=== PATIENT | female | born 1975 | race Caucasian/White ===

== ENCOUNTER 2018-10-02 06:33 | Observation (INO) | payer BC | END 2018-10-03 15:30 | disposition home or self-care (01) | LOC: ER FS 06:33 → 4TH 09:34 ==

== ENCOUNTER 2023-02-06 08:54 | Day surgery (SDC) | payer BC ==
[~2023-02-06] VITALS: Ht 162.5 cm; Wt 110.4 kg
[~2023-02-06 08:54] MED LIST: ALB0.5V IH; AMLO-250 PO; ATOR10TA66 PO; CEFD300C3 PO; CITA20TA9 PO; FERR325T18 PO; FLUC150T PO; GLIM4TAB5 PO; IBUP-1773 PO; INDO25CA99 PO; LABE100T9 PO; LIRA0.6P3 SQ; LISI20TA26 PO; LOSA50TA63 PO; MEDR10TA9 PO; METF-399 PO; METO50TA7 PO; PROP40TA5 PO; SITA100T12 PO
[2023-02-06] MEDS ORDERED: LACTATED RINGERS 1,000 ML 1,000 ML IV STA (09:06)
[2023-02-06] MEDS ORDERED: HURRICAINE EXT TUBE (BENZOCAINE) XX PRN (09:15)
[2023-02-06 09:20] VITALS: BP 147/84
[2023-02-06] MEDS ORDERED: MIDAZOLAM INJ 2 MG/2 ML VIAL ONE (09:45)
--- NOTE | 2023-02-06 10:06 | Progress Note-Pre Operative ---
Pre-Operative Progress Note Date of Available H&P: Jan 14, 2023 Date H&P Reviewed: Feb 06, 2023 Time H&P Reviewed: 10:04 History & Physical: H&P Reviewed, Patient Examed, No changes noted Pre-Operative Diagnosis: GERD, Screening TIM FARIAS DO Feb 06, 2023 10:06
[2023-02-06 10:45] VITALS: BP 108/68
--- NOTE | 2023-02-06 10:45 | Progress Note-Post Operative ---
Post-Operative Progess Note Surgeon (s)/Hull Drafter (s) Surgeon TIM FARIAS DO Hull Drafter: Brett Dover, MSIII Pre-Operative Diagnosis GERD, Screening Post-Operative Diagnosis Gastritis ??Gastric Ulcer Polyp internal hemorrhoids external hemorrhoids Procedure & Operative Findings Date of Procedure 02/06/23 Procedure Performed/Findings EGD with biopsy Colonoscopy with snare polypectomy PROCEDURE NOTE: After informed consent was obtained, the patient was brought to the endoscopy suite, placed in bed in left lateral decubitus position. She was administered IV sedation by the [employer] AND JOINER who then monitored vitals the entire time, heart rate, blood pressure and pulse ox and the scope was inserted down the mouth through the esophagus into the stomach. On the way down, noted some mild esophagitis, took a picture, pushed into the stomach, pushed past the antrum into the duodenum. Duodenum looked good. Pulled back and did a biopsy of antrum, then retroflexed the scope, did not see a hiatal hernia, took a picture and then looked at the body of the stomach. I thought I saw an ulcer and did a biopsy. Then pulled the scope into the GE junction and did a biopsy of the GE junction. Pushed the scope back into the stomach, suctioned all the air out of the stomach. At this point pulled the scope up the esophagus and out the mouth. Switched camera, switched gloves, went down below and started the colonoscopy. Pushed all the way to about 150 cm and pushed into the cecum, took a picture of appendiceal orifice and noted the ileocecal valve. I found a polyp in the Ascending colon and removed it with snare. Then slowly withdrew the scope insufflating to look circumferentially at the guillen starting in the cecum, up the ascending colon to the hepatic flexure and then down the transverse colon. I found another flat polyp here and removed it with hot snare. Continued to the splenic flexure, into the descending colon down into the sigmoid and then into the rectal vault. I retroflexed the scope and took a picture of the internal hemorrhoids. I then removed the scope and took a picture of the external hemorrhoids. The patient tolerated the procedure and she recovered in the endoscopy suite. Recommended for repeat colonoscopy in 5 years Anesthesia Type IV sedation by [employer] Estimated Blood Loss Estimated blood loss (mL): scant Specimens/Packing Specimens Removed antral bx body of stomach bx GE jxn bx Asc colon polyp transverse colon polyp TIM FARIAS DO Feb 06, 2023 10:45
--- NOTE | 2023-02-06 10:47 | Endoscopy Discharge Instruct ---
Endo Procedure/Findings Findings 1.: Gastric Ulcer, Gastritis 2.: Polyp 3.: Internal Hemorrhoids Discharge Instructions - Activity: You might feel a little sleepy until tomorrow. This is due to the medicine you received to relax you. Until tomorrow, you should: NOT drive a car, operate machinery or power tools. NOT drink any alcoholic beverages. NOT make any important decisions or sign importortant papers. Do not return to work until tomorrow, unless otherwise instructed. Resume previous activities tomorrow. Diet: Start by taking liquids. If you tolerate liquids, advance to solid food. 1.: EGD in 3 years 2.: Colonscopy in 5 years Notify Physician - If you experience excessive bleeding, unusual abdominal pain, fever, or chest pain, contact your doctor immediately. Follow-Up: Other Follow up in my office in one week TIM FARIAS DO Feb 06, 2023 10:47
[2023-02-06 10:50] VITALS: BP 104/57
[2023-02-06 11:25] VITALS: BP 104/57
--- NOTE | 2023-02-06 12:06 | Anesthesia-General Post-Op ---
MAC Patient Condition Mental Status/LOC: Same as Preop Cardiovascular: Satisfactory Nausea/Vomiting: Absent Respiratory: Satisfactory Pain: Controlled Complications: Absent Post Op Complications Complications None Follow Up Care/Instructions Patient Instructions None needed. Anesthesiology Discharge Order Discharge Order Patient is doing well, no complaints, stable vital signs, no apparent adverse anesthesia problems. No complications reported per nursing. TAMELA DENISE CRNA Feb 06, 2023 12:06
== END 2023-02-06 11:25 | disposition home or self-care (01) ==
LOC: ENDO 08:54
PROVIDERS: ATTEND Surgery
DX: Z12.11 Encounter for screening for malignant neoplasm of colon (principal); D12.2 Benign neoplasm of ascending colon; D12.3 Benign neoplasm of transverse colon; K29.50 Unspecified chronic gastritis without bleeding; K21.00 Gastro-esophageal reflux disease with esophagitis, without bleeding; K25.9 Gastric ulcer, unspecified as acute or chronic, without hemorrhage or perforation; K31.89 Other diseases of stomach and duodenum; K64.8 Other hemorrhoids; K64.4 Residual hemorrhoidal skin tags; E66.01 Morbid (severe) obesity due to excess calories; Z68.41 Body mass index [BMI] 40.0-44.9, adult
CPT/HCPCS: 84703